=== PATIENT | male | born 1955 | race Caucasian/White ===

== ENCOUNTER 2016-12-12 15:25 | Inpatient (IN) | payer SELFPAY ==
[2016-12-12 15:31] VITALS: BMI 25.0
--- NOTE | 2016-12-12 16:13 | C.PDOC ---
History Of Present Illness Patient is a 61 y/o male, with PMHx of HTN, that presents to the ED for evaluation of abdominal cramping associated with n/v/d for the last 2 days. Notes multiple episodes of vomiting. Patient states that he developed epigastric abdominal pain today. Pt states that his BP has been elevated, he reports taking his meds but states he is not tolerating PO. Otherwise, denies any fever, chills, headache, neck pain, chest pain, shortness of breath, or any other associated symptom at this time. Time Seen by Provider: 12/12/16 16:01 Chief Complaint (Nursing): High Blood Pressure History Per: Patient History/Exam Limitations: no limitations Onset/Duration Of Symptoms: Days (2) Current Symptoms Are (Timing): Still Present Associated Symptoms: denies: Chest Pain, Dyspnea, Dizziness, Blurred Vision, Focal Weakness, Headache Quality Of Symptoms: denies: Rapid Heart Rate Recent travel outside of the [place]: No Additional History Per: Patient Past Medical History Reviewed: Historical Data, Nursing Documentation, Vital Signs Vital Signs: Last Vital Signs Temp 98 F 12/12/16 16:55 Pulse 70 12/12/16 17:50 Resp 15 12/12/16 17:50 BP 161/83 H 12/12/16 17:50 Pulse Ox 100 12/12/16 17:50 - Medical History PMH: HTN Denies: Chronic Kidney Disease Surgical History: Endoscopy Family History: States: Unknown Family Hx - Social History Hx Alcohol Use: Yes Hx Substance Use: No - Immunization History Hx Tetanus Toxoid Vaccination: No Hx Influenza Vaccination: No Hx Pneumococcal Vaccination: No Review Of Systems Except As Marked, All Systems Reviewed And Found Negative. Constitutional: Negative for: Fever, Chills Cardiovascular: Negative for: Chest Pain, Palpitations, Light Headedness Respiratory: Negative for: Shortness of Breath Gastrointestinal: Positive for: Nausea, Vomiting, Abdominal Pain, Diarrhea. Negative for: Constipation, Hematochezia, Hematemesis Genitourinary: Negative for: Dysuria, Frequency, Incontinence, Hematuria Musculoskeletal: Negative for: Neck Pain Neurological: Negative for: Weakness, Numbness, Headache, Dizziness Physical Exam - Physical Exam Appears: Non-toxic, No Acute Distress, Chronically Ill Skin: Normal Color, Warm, Dry Head: Atraumatic, Normacephalic Eye(s): bilateral: Normal Inspection, EOMI Neck: Normal ROM, Supple Chest: Symmetrical, No Tenderness Cardiovascular: Rhythm Regular Respiratory: Normal Breath Sounds, No Rales, No Rhonchi, No Wheezing Gastrointestinal/Abdominal: Soft, Tenderness (epigastric), No Distention, No Guarding, No Rebound Extremity: Normal ROM Neurological/Psych: Oriented x3, Normal Speech, Normal Cognition ED Course And Treatment - Laboratory Results Result Diagrams: 12/12/16 17:09 12/12/16 17:09 ECG: Interpreted By Me, Viewed By Me ECG Rhythm: Sinus Rhythm ECG Interpretation: No Acute Changes Interpretation Of ECG: No acute ST/T wave elevation or depression. Rate From EC (bpm) O2 Sat by Pulse Oximetry: 98 (on RA) Pulse Ox Interpretation: Normal Progress Note: Labs, EKG ordered and reviewed. Patient was treated with Pepcid IVP, Zofran, Morphine IVP, Maalox PO, and Apresoline IVP in the ED. Disposition - Disposition Disposition Time: 18:36 Condition: GUARDED - Clinical Impression Clinical Impression: Hypertension, Gastroenteritis - Scribe Statement The provider has reviewed the documentation as recorded by the Belkys Brock Provider Attestation: All medical record entries made by the [place]ma[place]cliff were at my direction and personally dictated by me. I have reviewed the chart and agree that the record accurately reflects my personal performance of the history, physical exam, medical decision making, and the department course for this patient. I have also personally directed, reviewed, and agree with the discharge instructions and disposition. Physician Patient Turnover Patient Signed Over To: Jeffry Villafuerte Handoff Comments: Patient with NVD, hypertension, labs wnl, BP much better, pending CT, re-evaluation, hydration, PO chalange and dispo
[2016-12-12] MEDS ORDERED: Sodium Chloride 0.9% 1,000 ML IV ONE (16:14)
[2016-12-12] MEDS ORDERED: Lidocaine 2% Viscous 100 ml PO STA (16:14)
[2016-12-12] MEDS ORDERED: Aluminum Hydroxide/Magnesium Hydroxide Susp (30 mL) PO STA (16:14)
[2016-12-12] MEDS ORDERED: Alum-Mag Hydrox-Simethicone Susp (30 mL) ONE (16:56)
[2016-12-12] MEDS ORDERED: Sodium Chloride 0.9% 1,000 ML ONE (16:56)
[2016-12-12 17:16] LABS: BASO % 0.2 % (0.0-2.0); EOS % 0.4 % (0.0-4.0); HEMATOCRIT 48.3 % (35.0-51.0); LYMPH % 13.6 % (20.0-40.0); MEAN CELL VOLUME 87.2 fL (80.0-94.0); MEAN CORPUSCULAR HEMOGLOBIN 29.7 pg (27.0-31.0); MEAN PLATELET VOLUME 8.2 fL (7.2-11.7); MONO # 0.3 K/uL (0.0-0.8); MONO % 4.2 % (0.0-10.0); NRBC % 0.2 % (0.0-2.0); RED CELL DISTRIBUTION WIDTH 14.6 % (11.5-14.5); WHITE BLOOD COUNT 7.6 K/uL (4.8-10.8)
[2016-12-12 17:26] LABS: POTASSIUM 3.8 mmol/L (3.6-5.2)
[2016-12-12 17:28] LABS: ALB/GLOB RATIO 1.1 (1.0-2.1); BILIRUBIN,TOTAL 2.1 mg/dL (0.2-1.3); TOTAL PROTEIN 8.7 g/dL (6.3-8.3)
[2016-12-12] MEDS ORDERED: Dextrose 5%/0.9% NS 1,000 ML IV ONE (21:39)
--- NOTE | 2016-12-12 22:09 | CP.PCM.HP ---
<Winifred Zuleta - Last Filed: 12/12/16 21:55> History of Present Illness - History of Present Illness History of Present Illness: CC: "vomiting and abdominal pain" HPI: Pt is a 61 year old male with medical history significant for diverticulitis and hypertension who presents to the emergency department for nausea, vomiting and severe abdominal pain x 2 days. Patient states he woke up after taking a nap in the afternoon on Tuesday with severe, "cramping" abdominal pain and nausea. He tried to eat and began to experience yellow-colored emesis. He denies hematemesis or coffee ground emesis. He also admits to watery diarrhea which resolved 1 day ago. He denies blood in the stool or toilet. Patient has continued to experience non-resolving emesis and admits to at least 30 episodes. Patient was unable to take his blood pressure medications due to vomiting. He currently complains of diffuse abdominal pain which has improved mildly with Morphine given in the emergency department. 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 Patient admits to associated subjective fever, chills, and diaphoresis. He denies recent travel, sick contacts, and recent weight loss. He also denies headache, visual changes, confusion, chest pain, palpitations, shortness of breath, lower extremity edema, and urinary symptoms. PMD: Dr. Estevez Floral Designer: Dr. Roberts PMH: see HPI Medications: Norvasc 10 mg po daily, ASA 81 mg po daily, Losartan/ Hydrochlorothiazide 100-12.5 mg po daily Allergies: NKDA Family History: DM, HTN Surgical History: hernia repair, L varicocelectomy Social: Occasionally smokes cigars but denies cigarette use. Admits to drinking alcohol socially on the weekend. Denies illicit drug use. Present on Admission - Present on Admission Any Indicators Present on Admission: No History of DVT/PE: No History of Uncontrolled Diabetes: No Urinary Catheter: No Decubitus Ulcer Present: No Review of Systems - Constitutional Constitutional: Chills, Excessive Sweating, Fever. absent: Night Sweats, Weight Loss - EENT Eyes: absent: Blurred Vision, Change in Vision Nose/Mouth/Throat: absent: Nasal Congestion, Nasal Discharge - Cardiovascular Cardiovascular: absent: Chest Pain, Chest Pain at Rest, Dyspnea, Leg Edema, Palpitations, Pedal Edema, Rapid Heart Rate - Respiratory Respiratory: absent: Cough, Hemoptysis, Dyspnea on Exertion, Chest Congestion - Gastrointestinal Gastrointestinal: Abdominal Pain, Cramping, Diarrhea, Nausea, Vomiting. absent : Coffee Ground Emesis, Excessive Flatus, Hematemesis, Hematochezia, Melena - Genitourinary Genitourinary: absent: Change in Urinary Stream, Dysuria, Hematuria - Musculoskeletal Musculoskeletal: absent: Arthralgias, Back Pain - Integumentary Integumentary: absent: Changing Lesions, New Lesions - Neurological Neurological: absent: Numbness, Focal Weakness, Vertigo - Psychiatric Psychiatric: absent: Anxiety, Depression Past Patient History - Past Medical History & Family History Past Medical History?: Yes - Past Social History Smoking Status: Former Smoker - CARDIAC Hx Hypertension: Yes - PULMONARY Hx Respiratory Disorders: No - NEUROLOGICAL Hx Neurological Disorder: No - HEENT Hx HEENT Problems: No - RENAL Hx Chronic Kidney Disease: No - ENDOCRINE/METABOLIC Hx Endocrine Disorders: No - HEMATOLOGICAL/ONCOLOGICAL Hx Blood Disorders: No - INTEGUMENTARY Hx Dermatological Problems: No - MUSCULOSKELETAL/RHEUMATOLOGICAL Hx Musculoskeletal Disorders: No - GASTROINTESTINAL Hx Gastrointestinal Disorders: No - GENITOURINARY/GYNECOLOGICAL Hx Genitourinary Disorders: No - PSYCHIATRIC Hx Substance Use: No - SURGICAL HISTORY Hx Surgeries: Yes Hx Herniorrhaphy: Yes Other/Comment: VARICOCELECTOMY - ANESTHESIA Hx Anesthesia: Yes Hx Anesthesia Reactions: No Hx Malignant Hyperthermia: No Meds Allergies/Adverse Reactions: Allergies Allergy/AdvReac Type Severity Reaction Status Date / Time No Known Allergies Allergy Verified 12/12/16 15:27 Physical Exam - Constitutional Appears: Non-toxic, No Acute Distress - Head Exam Head Exam: ATRAUMATIC, NORMAL INSPECTION, NORMOCEPHALIC - Eye Exam Eye Exam: EOMI, Normal appearance, PERRL - ENT Exam ENT Exam: Mucous Membranes Dry - Neck Exam Neck exam: Positive for: Full Rom, Normal Inspection - Respiratory Exam Respiratory Exam: Clear to Auscultation Bilateral, NORMAL BREATHING PATTERN. absent: Chest Wall Tenderness, Decreased Breath Sounds, Rales, Rhonchi, Wheezes - Cardiovascular Exam Cardiovascular Exam: +S1, +S2. absent: Tachycardia, Diastolic murmur, Gallop, Rubs, Systolic Murmur - GI/Abdominal Exam GI & Abdominal Exam: Normal Bowel Sounds, Soft, Tenderness. absent: Distended, Guarding Additional comments: epigastric tenderness to palpation - Extremities Exam Extremities exam: Positive for: normal inspection, pedal pulses present. Negative for: pedal edema, tenderness - Back Exam Back exam: NORMAL INSPECTION - Neurological Exam Neurological exam: Alert, CN II-XII Intact, Oriented x3 - Psychiatric Exam Psychiatric exam: Normal Affect, Normal Mood - Skin Skin Exam: Intact, Normal Color Results - Vital Signs Recent Vital Signs: Last Vital Signs Temp 98 F 12/12/16 16:55 Pulse 70 12/12/16 17:50 Resp 15 12/12/16 17:50 BP 161/83 H 12/12/16 17:50 Pulse Ox 98 12/12/16 18:36 - Labs Result Diagrams: 12/12/16 17:09 12/12/16 17:09 Assessment & Plan - Assessment and Plan (Free Text) Assessment: 1. Abdominal Pain likely secondary to diverticulitis Keep NPO Normal Saline with Dextrose 5% IV @100cc Start IV Cipro 400 mg q12h and Flagyl 500 mg q8h Morphine 1 mg q4h PRN for pain Zofran 4 mg IVP q6h for nausea f/u AM labs GI: Dr. Roberts, consulted. Help appreciated. f/u recs EKG: NSR, rate 56. No acute St/T wave changes f/u Abdomen/Pelvis CT 2. Hypertension Initially in ED 204/112 Decreased to 161/83 with Hydralazine IV Continue home medications if able to tolerate po: Norvasc 10 mg po qd and Losartan 100 mg po daily/Hydrochlorothiazide 12.5 mg po daily Monitor 3. Acute Kidney Injury likely secondary to dehydration BUN/CR: 21/1.5 No prior creatinine to compare Continue IV fluids Monitor 4. Prophylaxis Protonix 40mg IVP daily SCD - Date & Time Date: 12/12/16 Time: 22:29 <Bg Garcia - Last Filed: 12/13/16 06:33> Results - Vital Signs Recent Vital Signs: Last Vital Signs Temp 98.6 F 12/13/16 02:10 Pulse 76 12/13/16 02:10 Resp 18 12/13/16 02:10 BP 125/82 12/13/16 02:10 Pulse Ox 97 12/13/16 02:10 - Labs Result Diagrams: 12/12/16 17:09 12/12/16 17:09 Assessment & Plan - Date & Time Date: 12/13/16 (I have seen and examined the patient. I agree with the findings and plan of care as documented by Dr. Zuleta. Patient with diverticulitis. Cipro and Flagyl. GI consult. Symptomatic treatment. Acute kidney injury likely secondary to dehydration. IVF and recheck renal status. Also with history of hypertension. Continue home meds. Monitor for acute changes.) Time: 06:31 Attending/Attestation - Attestation I have personally seen and examined this patient.: Yes I have fully participated in the care of the patient.: Yes I have reviewed all pertinent clinical information: Yes
[2016-12-12] MEDS ORDERED: Ciprofloxacin 400mg/200ml D5W 200 ML IVPB ONE (23:08)
[2016-12-12] MEDS: Ciprofloxacin 400mg/200ml D5W 200 ML IVPB SCH (23:14)
[2016-12-13] MEDS: metroNIDAZOLE IV 500 mg/100 ml 100 ML IVPB SCH ×3 (00:46→16:18)
[2016-12-13 07:56] LABS: BASO % 0.5 % (0.0-2.0); EOS % 0.3 % (0.0-4.0); HEMATOCRIT 45.3 % (35.0-51.0); LYMPH # 2.5 K/uL (1.0-4.3); LYMPH % 34.7 % (20.0-40.0); MEAN CELL VOLUME 88.2 fL (80.0-94.0); MEAN CORPUSCULAR HGB CONC 34.1 g/dL (33.0-37.0); MEAN PLATELET VOLUME 8.3 fL (7.2-11.7); MONO # 0.8 K/uL (0.0-0.8); MONO % 11.3 % (0.0-10.0); NRBC % 0.1 % (0.0-2.0); RED CELL DISTRIBUTION WIDTH 14.5 % (11.5-14.5); WHITE BLOOD COUNT 7.2 K/uL (4.8-10.8)
[2016-12-13 08:04] LABS: CHLORIDE 95 mmol/L (98-107); POTASSIUM 3.1 mmol/L (3.6-5.2); SODIUM 135 mmol/L (132-148)
[2016-12-13 08:06] LABS: ALB/GLOB RATIO 1.1 (1.0-2.1); BILIRUBIN,TOTAL 1.9 mg/dL (0.2-1.3); CARBON DIOXIDE 28 mmol/L (22-30); CHOLESTEROL 222 mg/dL (0-199); GFR AFRICAN-AMERICAN > 60
[2016-12-13 08:07] LABS: ALKALINE PHOSPHATASE 51 U/L (38-126); ALT/SGPT 33 U/L (21-72); AST/SGOT 25 U/L (17-59); BLOOD UREA NITROGEN 15 mg/dL (9-20); CALCIUM 8.2 mg/dl (8.6-10.4); GLUCOSE,RANDOM 90 mg/dL (75-110)
[2016-12-13 08:39] LABS: INR 1.1
[2016-12-13 08:44] LABS: THYROID STIMULATING HORMONE 3.08 mIU/L (0.46-4.68)
[2016-12-13] MEDS ORDERED: Enoxaparin 40 mg Syringe SC SCH (10:00)
[2016-12-13] MEDS ORDERED: Dextrose 5%/0.9% NS 1,000 ML IV ONE (10:15)
--- NOTE | 2016-12-13 10:16 | CT ---
PROCEDURE: CT Abdomen and Pelvis dated 12/12/2016. HISTORY: abdominal pain COMPARISON: None. TECHNIQUE: Contiguous axial images of the abdomen and pelvis performed in standard fashion without oral or intravenous contrast material. . Coronal and Sagittal reformats generated. Radiation dose: Total exam DLP = 370.74 mGy-cm. FINDINGS: LOWER THORAX: No evidence of acute infiltrate effusion or basilar pneumothorax. . Small hiatal hernia. Heart size is upper limits of normal. No significant pericardial effusion. LIVER: The liver exhibits normal size. There are a few tiny hepatic parenchymal calcifications are seen in the left lobe of the liver nonspecific. Rule out prior exposure to granulomatous disease process. No obvious hepatic mass or collection. . GALLBLADDER AND BILE DUCTS: Gallbladder is physiologically distended. No evidence of intraluminal gallbladder calculi. PANCREAS: Pancreas is slightly atrophic however otherwise unremarkable. . SPLEEN: Spleen exhibits normal size and attenuation pattern. No splenic mass collection or calcification ADRENALS: There are no adrenal lesions. KIDNEYS AND URETERS: Kidneys exhibit symmetric size. No evidence of nephrolithiasis or hydronephrosis. Mild nonspecific infiltration changes seen in the perinephric of fat bilaterally. BLADDER: The urinary bladder is incompletely distended which may account for slight thick-walled appearance. Muscular hypertrophy may contribute. Cystitis not excluded. REPRODUCTIVE: Prostate gland measures approximately 4.2 cm in transverse dimension. Penile calcifications are present. Questionable small hydrocele APPENDIX: Normal appendix. BOWEL: Evaluation of the bowel is limited. Stomach is distended with food debris liquid and air. Visualized loops of small bowel exhibit normal contour and caliber. No evidence of acute mechanical small bowel obstruction. Multiple colonic diverticula seen along the sigmoid and distal descending colon. Mild wall thickening short segment of the sigmoid colon consistent with a mild acute diverticulitis. Minimal vague infiltration in the adjacent perisigmoid fat. Changes PERITONEUM: Unremarkable. No fluid collection. No free air. Small fat containing right inguinal hernia. Small fat containing umbilical hernia LYMPH NODES: Unremarkable. No enlarged lymph nodes. VASCULATURE: Unremarkable. No aortic aneurysm. BONES: Minor multilevel degenerative spondylosis of the lower thoracic and lumbar spine. OTHER FINDINGS: None. IMPRESSION: Findings consistent with mild acute diverticulitis. Few scattered nonspecific hepatic calcifications. Small fat containing inguinal and umbilical hernias. See above discussion for additional findings and details.
[2016-12-13] MEDS: Ciprofloxacin 400mg/200ml D5W 200 ML IVPB SCH (10:50)
[2016-12-13] MEDS ORDERED: Potassium Chloride 20 mEq 100 ML IVPB ONE (10:59)
[2016-12-13] MEDS ORDERED: Potassium Chloride 20 mEq ER Tab PO STA (14:11)
--- NOTE | 2016-12-13 14:33 | CP.PCM.CON ---
History of Present Illness - History of Present Illness History of Present Illness: Gastroenterology Fellow/PGY4 Consult Note Patient is a 61 year old male with history of Hypertension, PUD, colon polyps presenting with abdominal pain. He describes eating fish from a restaurant on Tuesday for dinner followed by awakening in the middle of the night with bilateral lower abdomen pain followed by nausea and endorsed twenty episodes of food/bilious vomitus. Associated acid reflux, indigestion, and two episodes of diarrhea on Tuesday with resolution after use of Pepto Bismol. Denies fever, chills, sweats, bloating, melena, hematochezia, or hematemesis. Prior EGD and colonoscopy 03/2016 showed Gastritis, sigmoid diverticulosis, and a 5mm descending sessile tubular adenoma. Family-denies colon cancer Social-cigars "once in a while", few beers and shots every other weekend, denies illicit drugs Surgery-hernia, varicocelectomy Review of Systems - Review of Systems Review of Systems: A 12-point review of systems negative except for as above Past Patient History - Past Medical History & Family History Past Medical History?: Yes - Past Social History Smoking Status: Smoker Currrent Status Unknown - CARDIAC Hx Hypertension: Yes - PULMONARY Hx Respiratory Disorders: No - NEUROLOGICAL Hx Neurological Disorder: No - HEENT Hx HEENT Problems: No - RENAL Hx Chronic Kidney Disease: No - ENDOCRINE/METABOLIC Hx Endocrine Disorders: No - HEMATOLOGICAL/ONCOLOGICAL Hx Blood Disorders: No - INTEGUMENTARY Hx Dermatological Problems: No - MUSCULOSKELETAL/RHEUMATOLOGICAL Hx Musculoskeletal Disorders: No Hx Falls: No - GASTROINTESTINAL Hx Gastrointestinal Disorders: No - GENITOURINARY/GYNECOLOGICAL Hx Genitourinary Disorders: No - PSYCHIATRIC Hx Substance Use: No - SURGICAL HISTORY Hx Surgeries: Yes Hx Herniorrhaphy: Yes Other/Comment: VARICOCELECTOMY - ANESTHESIA Hx Anesthesia: Yes Hx Anesthesia Reactions: No Hx Malignant Hyperthermia: No Has any member of the family had a problem w/ anesthesia?: No Meds Allergies/Adverse Reactions: Allergies Allergy/AdvReac Type Severity Reaction Status Date / Time No Known Allergies Allergy Verified 12/12/16 15:27 - Medications Medications: Current Medications Amlodipine Besylate (Norvasc) 10 mg PO DAILY [facility] Last Admin: 12/13/16 10:50 Dose: 10 mg Aspirin (Ecotrin) 81 mg PO DAILY [facility] Last Admin: 12/13/16 10:50 Dose: 81 mg Enoxaparin Sodium (Lovenox) 40 mg SC DAILY [facility] Last Admin: 12/13/16 10:50 Dose: 40 mg Ciprofloxacin (Cipro 400mg/200ml Dsw) 200 mls @ 133 mls/hr IVPB Q12H [facility] Last Admin: 12/13/16 10:50 Dose: 133 mls/hr Metronidazole (Flagyl) 100 mls @ 100 mls/hr IVPB Q8 [facility] Last Admin: 12/13/16 06:03 Dose: 100 mls/hr Dextrose/Sodium Chloride (Dextrose 5%/0.9% Ns 1000 Ml) 1,000 mls @ 100 mls/hr IV .Q10H ONE Stop: 12/13/16 20:14 Last Admin: 12/13/16 11:05 Dose: 100 mls/hr Influenza Virus Vaccine (Afluria) 45 mcg IM .ONCE ONE Stop: 12/15/16 10:01 Losartan Potassium (Cozaar) 100 mg PO DAILY [facility] Last Admin: 12/13/16 10:50 Dose: 100 mg Morphine Sulfate (Morphine) 1 mg IVP Q4 PRN PRN Reason: Pain, moderate (4-7) Last Admin: 12/13/16 02:52 Dose: 1 mg Ondansetron HCl (Zofran Inj) 4 mg IVP Q6 PRN PRN Reason: Nausea/Vomiting Pantoprazole Sodium (Protonix Inj) 40 mg IVP DAILY [facility] Last Admin: 12/13/16 10:50 Dose: 40 mg Pneumococcal Polyvalent Vaccine (Pneumovax 23 Vaccine) 0.5 ml IM .ONCE ONE Stop: 12/15/16 03:34 Physical Exam - Constitutional Appears: Non-toxic, No Acute Distress - Head Exam Head Exam: ATRAUMATIC, NORMOCEPHALIC - Eye Exam Eye Exam: EOMI, PERRL Pupil Exam: PERRL. absent: Miosis, Mydriatic - ENT Exam ENT Exam: Mucous Membranes Moist, Normal Oropharynx - Neck Exam Neck exam: Positive for: Full Rom, Normal Inspection - Respiratory Exam Respiratory Exam: Clear to Auscultation Bilateral. absent: Rales, Rhonchi, Wheezes - Cardiovascular Exam Cardiovascular Exam: RRR, +S1, +S2. absent: Gallop, Rubs - GI/Abdominal Exam GI & Abdominal Exam: Normal Bowel Sounds, Soft, Tenderness. absent: Distended, Firm, Guarding, Organomegaly, Rebound, Rigid Additional comments: mild discomfort to palpation of B/L LQ - Extremities Exam Extremities exam: Positive for: full ROM. Negative for: pedal edema - Psychiatric Exam Psychiatric exam: Normal Affect, Normal Mood - Skin Skin Exam: Dry, Intact, Normal Color, Warm Results - Vital Signs Recent Vital Signs: Last Vital Signs Temp 98.2 F 12/13/16 11:11 Pulse 67 12/13/16 11:11 Resp 18 12/13/16 11:11 BP 131/85 12/13/16 11:11 Pulse Ox 95 12/13/16 11:11 - Labs Result Diagrams: 12/13/16 07:36 12/13/16 07:36 Labs: Laboratory Results - last 24 hr 12/13/16 07:36 WBC 7.2 RBC 5.14 Hgb 15.4 Hct 45.3 MCV 88.2 MCH 30.0 MCHC 34.1 RDW 14.5 Plt Count 203 MPV 8.3 Neut % (Auto) 53.2 Lymph % (Auto) 34.7 Moca % (Auto) 11.3 H Eos % (Auto) 0.3 Baso % (Auto) 0.5 Neut # 3.8 Lymph # 2.5 Moca # 0.8 Eos # 0.0 Baso # 0.0 PT 12.2 INR 1.1 APTT 27 Sodium 135 Potassium 3.1 L Chloride 95 L Carbon Dioxide 28 Anion Gap 15 BUN 15 Creatinine 1.4 Est GFR ( Amer) > 60 Est GFR (Non-Af Amer) 52 Random Glucose 90 Hemoglobin A1c 6.1 Calcium 8.2 L Magnesium 2.0 Total Bilirubin 1.9 H AST 25 ALT 33 Alkaline Phosphatase 51 Total Protein 7.0 Albumin 3.7 Globulin 3.3 Albumin/Globulin Ratio 1.1 Triglycerides 103 Cholesterol 222 H LDL Cholesterol Direct 126 HDL Cholesterol 62 TSH 3rd Generation 3.08 Assessment & Plan - Assessment and Plan (Free Text) Assessment: 61 year old male with history of Hypertension, PUD, colon polyps presenting with abdominal pain. CT A/P showed mild sigmoid diverticulitis. Prior EGD and colonoscopy 03/2016 showed Gastritis, sigmoid diverticulosis, and a 5mm descending sessile tubular adenoma. Plan: >pain with almost complete resolution >resolved vomitus and diarrhea >afebrile, no leukocytosis >tolerating liquid diet, advance as tolerated >continue Cipro and Flagyl for 10 to 14 days >cleared for discharge from GI standpoint once able to tolerate regular diet >follow up with Dr. Roberts, [facility] in 2 to 3 weeks
--- NOTE | 2016-12-13 15:06 | CP.PCM.DIS ---
<Maki Moore - Last Filed: 12/13/16 15:08> Provider - Provider Date of Admission: 12/12/16 20:37 Attending physician: Bg Garcia MD Primary care physician: PMD: Dr. Estevez Consults: Dr. Roberts - GI Time Spent in preparation of Discharge (in minutes): 35 Diagnosis - Discharge Diagnosis (1) Diverticulitis large intestine Status: Acute Comment: f/u GI and PCP in one week. Cipro and Flagyl for 9 more days Hospital Course - Lab Results Lab Results: Most Recent Lab Values WBC 7.2 K/uL (4.8-10.8) 12/13/16 07:36 RBC 5.14 Mil/uL (4.40-5.90) 12/13/16 07:36 Hgb 15.4 g/dL (12.0-18.0) 12/13/16 07:36 Hct 45.3 % (35.0-51.0) 12/13/16 07:36 MCV 88.2 fL (80.0-94.0) 12/13/16 07:36 MCH 30.0 pg (27.0-31.0) 12/13/16 07:36 MCHC 34.1 g/dL (33.0-37.0) 12/13/16 07:36 RDW 14.5 % (11.5-14.5) 12/13/16 07:36 Plt Count 203 K/uL (130-400) 12/13/16 07:36 MPV 8.3 fL (7.2-11.7) 12/13/16 07:36 Neut % (Auto) 53.2 % (50.0-75.0) 12/13/16 07:36 Lymph % (Auto) 34.7 % (20.0-40.0) 12/13/16 07:36 Grimes % (Auto) 11.3 % (0.0-10.0) H 12/13/16 07:36 Eos % (Auto) 0.3 % (0.0-4.0) 12/13/16 07:36 Baso % (Auto) 0.5 % (0.0-2.0) 12/13/16 07:36 Neut # 3.8 K/uL (1.8-7.0) 12/13/16 07:36 Lymph # 2.5 K/uL (1.0-4.3) 12/13/16 07:36 Grimes # 0.8 K/uL (0.0-0.8) 12/13/16 07:36 Eos # 0.0 K/uL (0.0-0.7) 12/13/16 07:36 Baso # 0.0 K/uL (0.0-0.2) 12/13/16 07:36 PT 12.2 SECONDS (9.7-12.2) 12/13/16 07:36 INR 1.1 12/13/16 07:36 APTT 27 SECONDS (21-34) 12/13/16 07:36 Sodium 135 mmol/L (132-148) 12/13/16 07:36 Potassium 3.1 mmol/L (3.6-5.2) L 12/13/16 07:36 Chloride 95 mmol/L (98-107) L 12/13/16 07:36 Carbon Dioxide 28 mmol/L (22-30) 12/13/16 07:36 Anion Gap 15 (10-20) 12/13/16 07:36 BUN 15 mg/dL (9-20) 12/13/16 07:36 Creatinine 1.4 MG/DL (0.8-1.5) 12/13/16 07:36 Est GFR ( Amer) > 60 12/13/16 07:36 Est GFR (Non-Af Amer) 52 12/13/16 07:36 Random Glucose 90 mg/dL (75-110) 12/13/16 07:36 Hemoglobin A1c 6.1 % (4.2-6.5) 12/13/16 07:36 Calcium 8.2 mg/dl (8.6-10.4) L 12/13/16 07:36 Magnesium 2.0 mg/dL (1.6-2.3) 12/13/16 07:36 Total Bilirubin 1.9 mg/dL (0.2-1.3) H 12/13/16 07:36 AST 25 U/L (17-59) 12/13/16 07:36 ALT 33 U/L (21-72) 12/13/16 07:36 Alkaline Phosphatase 51 U/L (38-126) 12/13/16 07:36 Total Protein 7.0 g/dL (6.3-8.3) 12/13/16 07:36 Albumin 3.7 g/dL (3.5-5.0) 12/13/16 07:36 Globulin 3.3 gm/dL (2.2-3.9) 12/13/16 07:36 Albumin/Globulin Ratio 1.1 (1.0-2.1) 12/13/16 07:36 Triglycerides 103 mg/dL (0-149) 12/13/16 07:36 Cholesterol 222 mg/dL (0-199) H 12/13/16 07:36 LDL Cholesterol Direct 126 mg/dL (0-129) 12/13/16 07:36 HDL Cholesterol 62 mg/dL (30-70) 12/13/16 07:36 Lipase 65 U/L (23-300) 12/12/16 17:09 TSH 3rd Generation 3.08 mIU/L (0.46-4.68) 12/13/16 07:36 - Hospital Course Hospital Course: PMD: Dr. Estevez [employer] Installer: Dr. Roberts PMH: see HPI Medications: Norvasc 10 mg po daily, ASA 81 mg po daily, Losartan/ Hydrochlorothiazide 100-12.5 mg po daily Allergies: NKDA Family History: DM, HTN Surgical History: hernia repair, L varicocelectomy Social: Occasionally smokes cigars but denies cigarette use. Admits to drinking alcohol socially on the weekend. Denies illicit drug use. On admission: Pt is a 61 year old male with medical history significant for diverticulitis and hypertension who presents to the emergency department for nausea, vomiting and severe abdominal pain x 2 days. Patient states he woke up after taking a nap in the afternoon on Tuesday with severe, "cramping" abdominal pain and nausea. He tried to eat and began to experience yellow-colored emesis. He denies hematemesis or coffee ground emesis. He also admits to watery diarrhea which resolved 1 day ago. He denies blood in the stool or toilet. Patient has continued to experience non-resolving emesis and admits to at least 30 episodes. Patient was unable to take his blood pressure medications due to vomiting. He currently complains of diffuse abdominal pain which has improved mildly with Morphine given in the emergency department. 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 Roberts is aware of his symptoms and instructed him to come to [facility] ED. Patient admits to associated subjective fever, chills, and diaphoresis. He denies recent travel, sick contacts, and recent weight loss. He also denies headache, visual changes, confusion, chest pain, palpitations, shortness of breath, lower extremity edema, and urinary symptoms. During Hospital Stay: GI consulted. Patient N/V resolved. Patient's diet was advanced and he tolerated. CT showed mild acute diverticulitis, few scattered nonspecific hepatic calcifications and small fat containing inguinal and ubmilical hernias. Labs wnl. Potassium replaced. Patient stable for discharge home per GI. Patient is to follow up with his primary care doctor within one weeks of discharge. Patient is to follow up with Dr. Roberts within one week of discharge for his diverticulitis. Patient is to continue his home medications and also take the following new medications: 1. Cipro 250mg by mouth twice a day 2. Flagyl 500mg by mouth three times day Patient is to return to the ED if symptoms return or persist. All instructions explained to the patient and he agrees. Discharge Exam - Head Exam Head Exam: ATRAUMATIC, NORMOCEPHALIC - Eye Exam Eye Exam: EOMI, Normal appearance, PERRL Pupil Exam: NORMAL ACCOMODATION - ENT Exam ENT Exam: Mucous Membranes Dry, Mucous Membranes Moist - Respiratory Exam Respiratory Exam: Clear to PA & Lateral, NORMAL BREATHING PATTERN, UNREMARKABLE - Cardiovascular Exam Cardiovascular Exam: REGULAR RHYTHM, +S1, +S2 - GI/Abdominal Exam GI & Abdominal Exam: Normal Bowel Sounds, Soft, Tenderness. absent: Distended, Firm, Guarding Additional comments: LLQ - Extremities Exam Extremities exam: normal inspection - Back Exam Back exam: NORMAL INSPECTION - Neurological Exam Neurological exam: Alert, CN II-XII Intact, Normal Gait, Oriented x3 - Psychiatric Exam Psychiatric exam: Normal Affect, Normal Mood - Skin Skin Exam: Dry, Intact, Normal Color, Warm Discharge Plan - Discharge Medications Prescriptions: Ciprofloxacin [Cipro] 250 mg PO BID #18 tab Metronidazole [Flagyl] 500 mg PO TID 9 Days - Follow Up Plan Condition: GUARDED Disposition: HOME/ ROUTINE Instructions: Diverticulitis (DC), Acute Abdominal Pain (DC), Diverticulitis Diet (DC), Hypertension (DC) Additional Instructions: Patient stable for discharge home per GI. Patient is to follow up with his primary care doctor within one weeks of discharge. Patient is to follow up with Dr. Roberts within one week of discharge for his diverticulitis. Patient is to continue his home medications and also take the following new medications: 1. Cipro 250mg by mouth twice a day 2. Flagyl 500mg by mouth three times day Patient is to return to the ED if symptoms return or persist. All instructions explained to the patient and he agrees. Referrals: Shai Roberts MD [Staff Provider] - <Patrick Harrington - Last Filed: 12/14/16 13:52> Provider - Provider Date of Admission: 12/12/16 20:37 Attending physician: Bg Garcia MD Hospital Course - Lab Results Lab Results: Most Recent Lab Values WBC 7.2 K/uL (4.8-10.8) 12/13/16 07:36 RBC 5.14 Mil/uL (4.40-5.90) 12/13/16 07:36 Hgb 15.4 g/dL (12.0-18.0) 12/13/16 07:36 Hct 45.3 % (35.0-51.0) 12/13/16 07:36 MCV 88.2 fL (80.0-94.0) 12/13/16 07:36 MCH 30.0 pg (27.0-31.0) 12/13/16 07:36 MCHC 34.1 g/dL (33.0-37.0) 12/13/16 07:36 RDW 14.5 % (11.5-14.5) 12/13/16 07:36 Plt Count 203 K/uL (130-400) 12/13/16 07:36 MPV 8.3 fL (7.2-11.7) 12/13/16 07:36 Neut % (Auto) 53.2 % (50.0-75.0) 12/13/16 07:36 Lymph % (Auto) 34.7 % (20.0-40.0) 12/13/16 07:36 Grimes % (Auto) 11.3 % (0.0-10.0) H 12/13/16 07:36 Eos % (Auto) 0.3 % (0.0-4.0) 12/13/16 07:36 Baso % (Auto) 0.5 % (0.0-2.0) 12/13/16 07:36 Neut # 3.8 K/uL (1.8-7.0) 12/13/16 07:36 Lymph # 2.5 K/uL (1.0-4.3) 12/13/16 07:36 Grimes # 0.8 K/uL (0.0-0.8) 12/13/16 07:36 Eos # 0.0 K/uL (0.0-0.7) 12/13/16 07:36 Baso # 0.0 K/uL (0.0-0.2) 12/13/16 07:36 PT 12.2 SECONDS (9.7-12.2) 12/13/16 07:36 INR 1.1 12/13/16 07:36 APTT 27 SECONDS (21-34) 12/13/16 07:36 Sodium 135 mmol/L (132-148) 12/13/16 07:36 Potassium 3.1 mmol/L (3.6-5.2) L 12/13/16 07:36 Chloride 95 mmol/L (98-107) L 12/13/16 07:36 Carbon Dioxide 28 mmol/L (22-30) 12/13/16 07:36 Anion Gap 15 (10-20) 12/13/16 07:36 BUN 15 mg/dL (9-20) 12/13/16 07:36 Creatinine 1.4 MG/DL (0.8-1.5) 12/13/16 07:36 Est GFR ( Amer) > 60 12/13/16 07:36 Est GFR (Non-Af Amer) 52 12/13/16 07:36 Random Glucose 90 mg/dL (75-110) 12/13/16 07:36 Hemoglobin A1c 6.1 % (4.2-6.5) 12/13/16 07:36 Calcium 8.2 mg/dl (8.6-10.4) L 12/13/16 07:36 Magnesium 2.0 mg/dL (1.6-2.3) 12/13/16 07:36 Total Bilirubin 1.9 mg/dL (0.2-1.3) H 12/13/16 07:36 AST 25 U/L (17-59) 12/13/16 07:36 ALT 33 U/L (21-72) 12/13/16 07:36 Alkaline Phosphatase 51 U/L (38-126) 12/13/16 07:36 Total Protein 7.0 g/dL (6.3-8.3) 12/13/16 07:36 Albumin 3.7 g/dL (3.5-5.0) 12/13/16 07:36 Globulin 3.3 gm/dL (2.2-3.9) 12/13/16 07:36 Albumin/Globulin Ratio 1.1 (1.0-2.1) 12/13/16 07:36 Triglycerides 103 mg/dL (0-149) 12/13/16 07:36 Cholesterol 222 mg/dL (0-199) H 12/13/16 07:36 LDL Cholesterol Direct 126 mg/dL (0-129) 12/13/16 07:36 HDL Cholesterol 62 mg/dL (30-70) 12/13/16 07:36 Lipase 65 U/L (23-300) 12/12/16 17:09 TSH 3rd Generation 3.08 mIU/L (0.46-4.68) 12/13/16 07:36 Attending/Attestation - Attestation I have personally seen and examined this patient.: Yes I have fully participated in the care of the patient.: Yes I have reviewed all pertinent clinical information, including history, physical exam and plan: Yes Notes (Text): 12/14/16 13:49 Medical Attending: Patient was seen and examined by me. Agree with the above note by the resident. The patient had CT imaging done and it suggested diverticulitis. When we saw patient he reported feeling better and that he was wanting to tolerate diet. He was already on abx and was evaluated by his GI physician whom had recommended he go to the hospital due to the pain. Patient was wanting to go home. He understands he needs to take the abx and the RXs were written for thank you Patrick Harrington
[2016-12-13] MEDS ORDERED: Potassium Chloride 20 mEq ER Tab PO ONE (15:54)
[2016-12-13 16:30] VITALS: BP 122/81; PULSE 76; RESP 20; TEMP 98.5; O2SAT 97
[2016-12-13 22:43] LABS: RBC URINE < 1 /hpf (0-3); URINE BACTERIA RARE (<OCC); URINE BILIRUBIN NEGATIVE (NEGATIVE); URINE BLOOD NEGATIVE (NEGATIVE); URINE COLOR Straw (YELLOW); URINE GLUCOSE (UA) NORMAL (Normal); URINE KETONE NEGATIVE (NEGATIVE); URINE LEUKOCYTE ESTERASE NEG Leu/uL (Negative); URINE PROTEIN NEGATIVE (NEGATIVE); URINE UROBILINOGEN NORMAL mg/dL (0.2-1.0); WBC URINE < 1 /hpf (0-5)
[2016-12-15] MEDS ORDERED: Pneumococcal 23-Valent Vaccine IM ONE (03:33)
--- NOTE | 2016-12-15 08:00 | CARD ---
APPROVED REPORT EKG Measurement Heart [id number] <Conclusion> Sinus bradycardia Left axis deviation Minimal voltage criteria for LVH, may be normal variant Abnormal ECG
[2016-12-15] MEDS ORDERED: Influenza Virus Vaccine 45 mcg/0.5 ml Syr IM ONE (10:00)
== END 2016-12-13 16:50 | disposition home or self-care (01) | DRG 392 ==
LOC: C.ER 15:25 → C.9E 20:37 → C.5T 23:45
PROVIDERS: ADMIT Family Medicine; ATTEND Family Medicine
DX: K57.32 Diverticulitis of large intestine without perforation or abscess without bleeding (principal); N17.9 Acute kidney failure, unspecified; E86.0 Dehydration; R11.2 Nausea with vomiting, unspecified; I10 Essential (primary) hypertension; Z72.0 Tobacco use